=== PATIENT | male | born 1950 | race Caucasian/White ===

== ENCOUNTER → 2017-03-06 | Outpatient (CLI) | payer MEDICARE, OTHER ==
[2017-03-06 13:28] LABS: HEMOGLOBIN 14.5 g/dL (14.1-18.0); LYMPH # 1.7 K/mm3 (0.7-4.5); LYMPH % 27.8 % (10-50)
[2017-03-06 13:52] LABS: BUN 30 mg/dL (7-18)
[2017-03-06 13:55] LABS: GFR (ESTIMATED) 47 ML/MIN (>60)
[2017-03-07 07:38] LABS: PSA, Free 0.39 ng/mL; Prostate Specific Ag 1.1 ng/mL (0.0-4.0)
== END ==
LOC: CARL-LAB 08:51
PROVIDERS: Physician Assistant
DX: E11.9 Type 2 diabetes mellitus without complications (principal); I10 Essential (primary) hypertension; E78.5 Hyperlipidemia, unspecified; Z12.5 Encounter for screening for malignant neoplasm of prostate